=== PATIENT | female | born 1985 | race Hispanic/Latino ===

== ENCOUNTER 2022-07-04 12:28 | Outpatient (CLI) | payer OTHER ==
[2022-07-04 12:54] LABS: #Basophils 0.1 thou/uL (0.0-0.2); #Eosinphils 0.1 thou/uL (0.0-0.7); #Lymphocytes 0.9 thou/uL (1.20-3.40); #Monocytes 0.3 thou/uL (0.11-0.59); %Basophils 1.2 % (0.0-1.0); %Eosinophils 1.3 % (0.0-10.0); %Lymphocytes 20.3 % (21.0-51.0); %Monocytes 7.5 % (0.0-10.0); %Neutrophils 69.7 % (42.0-75.0); Hemoglobin 12.6 g/dL (12.0-16.0); Mean Corpuscular HGB CONC 33.1 g/dL (32.0-36.0); Mean Corpuscular Volume 87.5 fL (78.0-98.0); Mean Platelet Volume 6.5 fL (7.4-10.4); Platelet Count 275 thou/uL (130-400); RBC Distribution Width 12.7 % (11.5-14.5); Red Blood Cell (RBC) Count 4.34 mill/uL (4.20-5.40); White Blood Cell (WBC) Count 4.3 thou/uL (4.8-10.8)
[2022-07-04 13:27] LABS: ALT (SGPT) 17 U/L (8-55); AST (SGOT) 15 U/L (5-34); Albumin 4.4 g/dL (3.5-5.0); Alkaline Phosphatase 34 U/L (40-110); Anion Gap 9 mmol/L (10-20); BUN (Urea Nitrogen) 12 mg/dL (7.0-18.7); Bilirubin, Total 0.4 mg/dL (0.2-1.2); Calc. Creatinine Clearance 0 mL/min (70-130); Calcium 9.1 mg/dL (7.8-10.44); Carbon Dioxide 30 mmol/L (22-29); Chloride 106 mmol/L (98-107); Estimated GFR 113; Globulin 2.8 g/dL (2.4-3.5); Glucose 85 mg/dL (70-105); Potassium 3.8 mmol/L (3.5-5.1); Protein, Total 7.2 g/dL (6.0-8.3); Sodium 141 mmol/L (136-145)
[2022-07-04 13:38] LABS: Thyroid Stimulating Hormone 2.7028 uIU/mL (0.35-4.94)
[2022-07-04 17:29] LABS: Iron 41 ug/dL (50-170); Iron Binding Capacity, Total 403 mcg/dL (265-497)
[2022-07-04 17:35] LABS: Ferritin 9.94 ng/mL (10-291); Free T4 (Free Thyroxine) 1.02 ng/dL (0.70-1.48)
[2022-07-04 17:37] LABS: Vitamin D, 25 Hydroxy 31.4 ng/ml (> 30.0)
[2022-07-05 11:07] LABS: Follicle Stimulating Hormone 19.57 mIU/mL (See Ranges); Luteinizing Hormone 6.39 mIU/mL (See Ranges)
== END 2022-07-04 12:29 | disposition home or self-care (01) ==
LOC: BURLAB 12:28
PROVIDERS: ATTEND Family Medicine
DX: E56.9 Vitamin deficiency, unspecified (principal); L65.9 Nonscarring hair loss, unspecified
CPT/HCPCS: 36415; 80053; 82306; 82627; 82670; 82728; 83001; 83002; 83540; 83550; 84439; 84443; 85025; 86038; 86225